=== PATIENT | female | born 1980 | race Caucasian/White ===

== ENCOUNTER 2018-12-29 12:07 | Emergency (ER) | payer MEDICAID ==
[~2018-12-29] VITALS: Ht 157.5 cm; Wt 59.1 kg
[2018-12-29] MEDS ORDERED: ketorolac tromethamine 15mg/ml inj. IM ONE (12:20)
[2018-12-29 12:47] VITALS: BP 118/74
== END 2018-12-29 13:04 | disposition home or self-care (01) ==
LOC: ER 12:08
DX: S16.1XXA Strain of muscle, fascia and tendon at neck level, initial encounter (principal); F17.200 Nicotine dependence, unspecified, uncomplicated; Z88.5 Allergy status to narcotic agent; X58.XXXA Exposure to other specified factors, initial encounter; Y93.89 Activity, other specified; Y92.89 Other specified places as the place of occurrence of the external cause; Y99.8 Other external cause status
CPT/HCPCS: 96372; 99283; J1885

== ENCOUNTER 2020-01-03 16:11 | Outpatient (CLI) | payer OTHER | END 2020-01-03 23:59 | disposition home or self-care (01) | LOC: ER 16:11 | PROVIDERS: ATTEND Internal Medicine Infectious Disease | DX: Z20.828 Contact with and (suspected) exposure to other viral communicable diseases (principal); Z53.21 Procedure and treatment not carried out due to patient leaving prior to being seen by health care provider | CPT/HCPCS: 36415 ==

== ENCOUNTER 2020-06-26 11:11 | Emergency (ER) | payer BC, OTHER ==
[~2020-06-26] VITALS: Ht 157.5 cm; Wt 59.1 kg
[2020-06-26 12:06] LABS: BASOPHILS # (AUTO) 0.1 X10'3 (0-0.2); BASOPHILS % (AUTO) 0.6 % (0-1); EOSINOPHILS % (AUTO) 0.5 % (0-6); HEMATOCRIT 40.2 % (35.0-45.0); HEMOGLOBIN 13.3 g/dl (12.0-16.0); LYMPHOCYTES # (AUTO) 1.6 X10'3 (1.1-4.8); LYMPHOCYTES % (AUTO) 18.4 % (21-51); MEAN CORPUSCULAR HEMOGLOBIN 31.9 PG (27.0-31.0); MEAN CORPUSCULAR HGB CONC 33.2 g/dL (33.0-36.5); MEAN PLATELET VOLUME 10.7 FL (7.4-10.4); MONOCYTES # (AUTO) 0.7 X10'3 (0-0.9); MONOCYTES % (AUTO) 7.3 % (2-12); NEUTROPHILS # (AUTO) 6.5 X10'3 (1.8-7.7); NEUTROPHILS % (AUTO) 73.2 % (42-75); PLATELET COUNT 200 X10'3 (140-440); RED BLOOD COUNT 4.18 X10'6 (4.20-5.60); RED CELL DISTRIBUTION WIDTH 13.1 % (11.5-14.5); WHITE BLOOD COUNT 8.9 X10'3 (4.5-11.0)
[2020-06-26 12:20] LABS: ALANINE AMINOTRANSFERASE 21 U/L (12-78); ALBUMIN 4.1 G/DL (3.4-5.0); ALBUMIN/GLOBULIN RATIO 1.3 (1.1-1.5); ALKALINE PHOSPHATASE 61 IU/L (46-116); ANION GAP 8 (8-16); ASPARTATE AMINO TRANSFERASE 17 U/L (10-37); BILIRUBIN,TOTAL 0.6 MG/DL (0.1-1.0); BLOOD UREA NITROGEN 10 MG/DL (7-18); BUN/CREATININE RATIO 12.3 (6.6-38.0); CALCIUM 8.6 MG/DL (8.5-10.1); CHLORIDE 103 MMOL/L (99-107); CREATININE 0.81 MG/DL (0.40-0.90); GLUCOSE 107 MG/DL (70-104); PHOSPHORUS 2.5 MG/DL (2.3-4.5); POTASSIUM 3.7 MMOL/L (3.5-5.1); SODIUM 139 MMOL/L (135-145); TOTAL CARBON DIOXIDE 28.2 MMOL/L (24-32); TOTAL PROTEIN 7.2 G/DL (6.4-8.2); eGFR 78 ML/MIN
--- NOTE | 2020-06-26 12:32 | NUR ---
While ambualting pt from bed 17 into bed 16, pt became very dizzy, stated she had tunnellng vision. When placed back on monitoring engineer, pt's HR was 119 bpm
[2020-06-26] MEDS ORDERED: diazepam 5mg tablet PO ONE (12:50)
[2020-06-26 13:57] LABS: LARGE PLATELETS FEW; PLATELET ESTIMATE NORMAL
[2020-06-26] MEDS ORDERED: DIAZ5TAB22 PO (14:52)
[2020-06-26 15:08] VITALS: BP 128/77
== END 2020-06-26 15:06 | disposition home or self-care (01) ==
LOC: ER 11:11 → EEVIPCON 11:11 → ER 15:06
DX: R53.1 Weakness (principal); R51.9 Headache, unspecified; R61 Generalized hyperhidrosis; R42 Dizziness and giddiness; F17.210 Nicotine dependence, cigarettes, uncomplicated; Z72.89 Other problems related to lifestyle; Z88.5 Allergy status to narcotic agent; Z79.899 Other long term (current) drug therapy
CPT/HCPCS: 36415; 70450; 80053; 82948; 83735; 84100; 84484; 85008; 85025; 93005; 99285

== ENCOUNTER 2021-02-04 06:39 | Emergency (ER) | payer BC ==
[~2021-02-04] VITALS: Ht 157.5 cm; Wt 56.8 kg
[2021-02-04] MEDS ORDERED: DEXAMETHASONE 6 MG TABLET PO ONE (06:55)
[2021-02-04 07:28] LABS: BASOPHILS # (AUTO) 0.1 X10'3 (0-0.2); BASOPHILS % (AUTO) 0.8 % (0-1); EOSINOPHILS # (AUTO) 0.1 X10'3 (0-0.9); EOSINOPHILS % (AUTO) 1.1 % (0-6); HEMATOCRIT 41.2 % (35.0-45.0); HEMOGLOBIN 14.3 g/dl (12.0-16.0); LYMPHOCYTES # (AUTO) 1.3 X10'3 (1.1-4.8); LYMPHOCYTES % (AUTO) 15.3 % (21-51); MEAN CORPUSCULAR HEMOGLOBIN 31.9 PG (27.0-31.0); MEAN CORPUSCULAR HGB CONC 34.7 g/dL (33.0-36.5); MEAN CORPUSCULAR VOLUME 92.1 FL (78-98); MEAN PLATELET VOLUME 10.6 FL (7.4-10.4); MONOCYTES # (AUTO) 0.9 X10'3 (0-0.9); MONOCYTES % (AUTO) 11.4 % (2-12); NEUTROPHILS # (AUTO) 5.9 X10'3 (1.8-7.7); NEUTROPHILS % (AUTO) 71.4 % (42-75); PLATELET COUNT 196 X10'3 (140-440); RED BLOOD COUNT 4.47 X10'6 (4.20-5.60); RED CELL DISTRIBUTION WIDTH 12.8 % (11.5-14.5); WHITE BLOOD COUNT 8.3 X10'3 (4.5-11.0)
[2021-02-04 07:38] LABS: D-DIMER < 0.19 MG/L FEU (0-0.50)
[2021-02-04 07:40] LABS: ALANINE AMINOTRANSFERASE 20 U/L (12-78); ALBUMIN/GLOBULIN RATIO 1.2 (1.1-1.5); ALKALINE PHOSPHATASE 51 IU/L (46-116); ANION GAP 12 (8-16); ASPARTATE AMINO TRANSFERASE 13 U/L (10-37); BILIRUBIN,TOTAL 0.7 MG/DL (0.1-1.0); BLOOD UREA NITROGEN 13 MG/DL (7-18); BUN/CREATININE RATIO 12.5 (6.6-38.0); CALCIUM 9.1 MG/DL (8.5-10.1); CHLORIDE 103 MMOL/L (99-107); CREATININE 1.04 MG/DL (0.40-0.90); GLUCOSE 84 MG/DL (70-104); POTASSIUM 3.6 MMOL/L (3.5-5.1); SODIUM 140 MMOL/L (135-145); TOTAL CARBON DIOXIDE 25.2 MMOL/L (24-32); TOTAL PROTEIN 7.4 G/DL (6.4-8.2); eGFR 59 ML/MIN
[2021-02-04 07:53] LABS: C-REACTIVE PROTEIN 0.13 MG/DL (0.0-0.5); FERRITIN 51 NG/ML (8-252); LACTATE DEHYDROGENASE 134 U/L (81-234)
[2021-02-04] MEDS ORDERED: DOXY100C43 PO (08:03)
[2021-02-04] MEDS ORDERED: ALBU18HF2 INH (08:03)
[2021-02-04] MEDS ORDERED: PRED20TA PO (08:03)
[2021-02-04] MEDS ORDERED: ipratropium/albuterol 3ml nebule NEB ONE (08:05)
[2021-02-04 08:35] VITALS: BP 107/87
[2021-02-04] MEDS ORDERED: albuterol 2.5 MG/3 ML nebule CONTNEB PRN (08:35)
== END 2021-02-04 09:01 | disposition home or self-care (01) ==
LOC: ER 06:40
DX: J20.9 Acute bronchitis, unspecified (principal); F17.210 Nicotine dependence, cigarettes, uncomplicated; Z20.822 Contact with and (suspected) exposure to COVID-19
CPT/HCPCS: 36415; 71045; 80053; 82728; 83615; 84145; 85025; 85379; 85384; 86140; 87635; 93005; 94640; 99285; C9803; 94760; J8540

== ENCOUNTER 2021-02-11 07:42 | Emergency (ER) | payer BC ==
[~2021-02-11] VITALS: Ht 157.5 cm; Wt 56.8 kg
[~2021-02-11 07:42] MED LIST: ALBU18HF2 INH; DOXY100C43 PO; PRED20TA PO
[2021-02-11 07:44] VITALS: BP 102/49
== END 2021-02-11 10:15 | disposition home or self-care (01) ==
LOC: ER 07:43
DX: B34.9 Viral infection, unspecified (principal); Z20.822 Contact with and (suspected) exposure to COVID-19; Z72.89 Other problems related to lifestyle
CPT/HCPCS: 71046; 87635; 99284; C9803

== ENCOUNTER 2021-06-12 02:08 | Emergency (ER) | payer BC ==
[~2021-06-12] VITALS: Ht 157.5 cm; Wt 59.1 kg
[~2021-06-12 02:08] MED LIST changes: -DOXY100C43 PO; -PRED20TA PO
[2021-06-12 02:10] VITALS: BP 11/58
[2021-06-12] MEDS ORDERED: ketorolac trometh inj. 60 MG/2 ML VIAL IM ONE ×2 (02:15→02:35)
[2021-06-12] MEDS ORDERED: CYCL-1 PO (02:22)
[2021-06-12] MEDS ORDERED: cyclobenzaprine 10mg tablet PO ONE (02:25)
== END 2021-06-12 02:39 | disposition home or self-care (01) ==
LOC: EEVIPCON 02:09 → ER 02:09
DX: M54.41 Lumbago with sciatica, right side (principal); R51.9 Headache, unspecified; Z72.89 Other problems related to lifestyle; Z88.8 Allergy status to other drugs, medicaments and biological substances; Z79.899 Other long term (current) drug therapy
CPT/HCPCS: 96372; 99283; J1885

== ENCOUNTER 2022-07-03 22:39 | Emergency (ER) | payer BC ==
[~2022-07-03] VITALS: Ht 157.5 cm; Wt 63.6 kg
[~2022-07-03 22:39] MED LIST changes: +CYCL-1 PO
[2022-07-03 22:43] VITALS: BP 126/56
[2022-07-03] MEDS ORDERED: BACL-11 PO (23:37)
== END 2022-07-03 23:43 | disposition home or self-care (01) ==
LOC: ER 22:39 → EEVIPCON 22:39 → ER 23:43
DX: R51.9 Headache, unspecified (principal); Z88.5 Allergy status to narcotic agent
CPT/HCPCS: 70450; 99284

== ENCOUNTER 2024-05-10 17:22 | Emergency (ER) | payer BC ==
[~2024-05-10] VITALS: Ht 157.5 cm; Wt 56.8 kg
[~2024-05-10 17:22] MED LIST changes: +BACL-11 PO
[2024-05-10] MEDS: ibuprofen tablet 400 MG TABLET PO ONE (18:20)
[2024-05-10 18:21] VITALS: PULSE 87
[2024-05-10] MEDS ORDERED: PRED50TA PO (18:39)
[2024-05-10] MEDS ORDERED: IBUP-864 PO (18:39)
[2024-05-10 18:52] VITALS: BP 120/98; RESP 15; TEMP 97.6; O2SAT 100
== END 2024-05-10 18:54 | disposition home or self-care (01) ==
LOC: ER 17:24
DX: S30.0XXA Contusion of lower back and pelvis, initial encounter (principal); Z88.5 Allergy status to narcotic agent; W18.2XXA Fall in (into) shower or empty bathtub, initial encounter; Y93.E1 Activity, personal bathing and showering; Y92.89 Other specified places as the place of occurrence of the external cause; Y99.8 Other external cause status
CPT/HCPCS: 72100; 72220; 99284

== ENCOUNTER 2024-09-08 08:13 | Emergency (ER) | payer BC ==
[~2024-09-08] VITALS: Ht 160 cm; Wt 59.1 kg
[~2024-09-08 08:13] MED LIST changes: +IBUP-864 PO; +PRED50TA PO
[2024-09-08 08:16] VITALS: TEMP 98.2
[2024-09-08] MEDS ORDERED: CLIN300C3 PO (08:22)
[2024-09-08] MEDS ORDERED: TRAM50TA2 PO (08:22)
--- NOTE | 2024-09-08 08:26 | Physician Documentation ---
HPI ~ General Chief Complaint: Tooth Problem Stated Complaint: TOOTH PAIN Time Seen by MD: 08:23 Primary Medical Doctor: None History of Present Illness HPI Comment Cracked R lower molar yesterday, with pain and difficulty sleeping. Medication Reconciliation Allergies: Coded Allergies: No Known Allergies (Unverified , 09/08/24) Scheduled Albuterol Sulfate (Ventolin Hfa), 2 PUFFS INH Q4HPRN Baclofen (Baclofen), 1 TAB PO Q8H Clindamycin HCl (Cleocin HCl), 1 CAP PO Q8H Cyclobenzaprine* (Cyclobenzaprine*), 1 TAB PO HS Ibuprofen (Ibu), 1 TAB PO Q8H Prednisone (Prednisone), 1 TAB PO DAILY Scheduled PRN Tramadol HCl (Tramadol HCl), 2 TAB PO TID PRN PRN for pain Past Medical History Past Medical History: Headache, *MUSCULOSKELETAL* Past Surgical History: noncontributory Alcohol Use: Occasionally Drug Use: none Lives with: Family Lives In: Home Occupation: employed Review of Systems All Other Systems at this time: Reviewed and Negative Physical Exam Vital Signs: RN Vital Signs have been reviewed: Yes, Temperature: 98.2, Source: Temporal, Heart Rate: 85, Respiratory Rate: 15, BP: 119/60, Pulse Oximetry: 100, Weight: 59.090 Physical Exam HEENT: PERRL, moist oral mucosa, EOMI; R lower molar with obvious defect but no adjacent swelling or purulence Pulmonary: No respiratory distress MSK: no deformity Skin: w/d/i, no rash Neuro: alert, nonfocal Psych: normal affect Progress Results/Orders Results/Orders Vital Signs 09/08/24 08:16 Temp 98.2 Pulse 85 Resp 15 B/P (MAP) 119/60 Pulse Ox 100 Medical Decision Making Findings Dental pain from dental fracture. Abx, pain meds, return precautions. Differential Dx:Considerations: Include: Periapical abscess, Peridontal abscess, Pulpitis, Tooth Fracture Departure Disposition: 01 HOME / SELF CARE / HOMELESS Impression: Primary Impression: Toothache Condition: Stable Discharge Instructions: Dental Pain Referrals: NO PRIMARY CARE PROVIDER (PCP) Prescriptions Clindamycin HCl (Cleocin HCl) 300 Mg Capsule 1 CAP PO Q8H for 10 Days, #30 CAP Prov: DELBERT STONE MD 09/08/24 Tramadol HCl (Tramadol HCl) 50 Mg Tablet 2 TAB PO TID PRN PRN for pain, #20 TAB Prov: DELBERT STONE MD 09/08/24 Education Educated: Patient Educated regarding: diagnosis, treatment, prognosis, need for follow up Signature Scribe Signature: . Attestation: . DELBERT STONE MD Sep 08, 2024 08:26
[2024-09-08 08:30] VITALS: BP 116/60; PULSE 85; RESP 15; O2SAT 100
== END 2024-09-08 08:31 | disposition home or self-care (01) ==
LOC: EEVIPCON 08:14 → ER 08:14
DX: K08.89 Other specified disorders of teeth and supporting structures (principal); Z79.899 Other long term (current) drug therapy; Z72.89 Other problems related to lifestyle
CPT/HCPCS: 99283